=== PATIENT | male | born 1990 | race Asian ===

== ENCOUNTER 2021-11-19 17:06 | Emergency (ER) | payer SELFPAY | END 2021-11-20 01:12 | disposition left against medical advice (07) | LOC: CSHERS 17:06 | DX: Z53.21 Procedure and treatment not carried out due to patient leaving prior to being seen by health care provider (principal) ==

== ENCOUNTER 2022-08-19 09:38 | Emergency (ER) | payer BC, SELFPAY | END 2022-08-19 10:54 | disposition home or self-care (01) | LOC: CSHERS 09:38 | DX: S52.515A Nondisplaced fracture of left radial styloid process, initial encounter for closed fracture (principal); W19.XXXA Unspecified fall, initial encounter | CPT/HCPCS: 29125 ==